=== PATIENT | male | born 1970 | race Caucasian/White ===

== ENCOUNTER 2020-03-05 02:59 | Emergency (ER) | payer MEDICAID ==
[~2020-03-05] VITALS: Ht 185.4 cm; Wt 113.0 kg
--- NOTE | 2020-03-05 03:13 | NUR ---
PT AMBULATORY TO ROOM WITH STEADY GAIT. NO SIGNS OF ACUTE DISTRESS.
--- NOTE | 2020-03-05 03:22 | NUR ---
PT DENIES ANY ACUTE SYMPTOMS, NO KRISHNA, CP, SOB. PT STATES HE WAS RELEASED FROM [facility] [place]UL[facility] AND IS NOW STARTING TO FOLLOW UP WITH HIS PCP, EYE MD AND SPINE MD. EYE MD IS THE ONE WHO SENT HIM AFTER CONCERNING EXAM. 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 PT GIVEN EXTENSIVE EDUCATION ON HTN, LIFESTYLE CHANGES AND MEDICATIONS. CONNECTED TO BP AND CARDIAC MONITORS, LAYING IN BED, NO SIGNS OF DISTRESS, CALL LIGHT AND BELONGINGS IN REACH.
[2020-03-05] MEDS ORDERED: METOPROLOL TARTRATE 25 MG TAB ONE (03:29)
[2020-03-05] MEDS ORDERED: METOPROLOL TARTRATE 25 MG TAB PO ONE (03:30)
[2020-03-05 03:57] LABS: ANION GAP 5 mmol/L (5-15); CALCIUM 8.4 mg/dL (8.5-10.1); CHLORIDE 105 mmol/L (98-107); CREATININE 1.09 mg/dL (0.7-1.3)
[2020-03-05 04:00] LABS: BASOPHILS # (AUTO) 0.05 x10^3/uL (0-0.1); BASOPHILS % (AUTO) 1 % (0-1); EOSINOPHILS # (AUTO) 0.11 x10^3/uL (0-0.4); EOSINOPHILS % (AUTO) 1 % (1-7); LYMPHOCYTES # (AUTO) 2.62 x10^3/uL (1-3.4); LYMPHOCYTES % (AUTO) 30 % (22-44); MD NO; MEAN CORPUSCULAR HEMOGLOBIN 29.7 pg (27.5-34.5); MEAN CORPUSCULAR HGB CONC 33.7 g/dL (33.2-36.2); MEAN CORPUSCULAR VOLUME 87.9 fL (81-97); MONOCYTES % (AUTO) 10 % (2-9); NEUTROPHILS # (AUTO) 4.96 x10^3/uL (1.8-6.8); NEUTROPHILS % (AUTO) 57 % (42-75); PLATELET COUNT 279 x10^3/uL (130-400); RED BLOOD COUNT 6.11 x10^6/uL (4.38-5.82); RED CELL DISTRIBUTION WIDTH 13.3 % (9.4-14.8)
[2020-03-05 04:14] VITALS: BP 129/87
--- NOTE | 2020-03-05 04:15 | NUR ---
PT CONDITION UNCHANGED.
== END 2020-03-05 04:49 | disposition home or self-care (01) ==
LOC: ED 04:40
DX: I10 Essential (primary) hypertension (principal); H53.8 Other visual disturbances; H57.10 Ocular pain, unspecified eye
CPT/HCPCS: 36415; 80048; 85025; 99283

== ENCOUNTER 2020-05-28 13:11 | Emergency (ER) | payer MEDICAID ==
[~2020-05-28] VITALS: Ht 185.4 cm; Wt 122.0 kg
[2020-05-28 13:38] VITALS: BP 143/80
--- NOTE | 2020-05-28 17:23 | NUR ---
NO ANSWER FROM LOBBY
--- NOTE | 2020-05-28 17:43 | NUR ---
NO ANSWER X2, 3
== END 2020-05-28 17:49 ==
LOC: ED 15:00
DX: R05 Cough (principal)
CPT/HCPCS: 99281